=== PATIENT | female | born 1940 | race Caucasian/White ===

== ENCOUNTER → 2019-04-20 | Outpatient (CLI) | payer MEDICARE ==
[~2019-04-20] VITALS: Ht 155 cm; Wt 48.0 kg
[~2019-04-20] MED LIST: CATHETER FLUSH 10 ML SYR IV PRN
[2019-04-20 13:07] VITALS: BP 154/69
[2019-04-20 13:36] VITALS: BP 201/72
--- NOTE | 2019-04-20 23:34 | STRESS TEST ---
DATE OF SERVICE: 04/20/2019 EXERCISE MYOVIEW STRESS TEST REFERRING PROVIDER: Wendy Jackson NP Baseline heart rate is 76. Baseline blood pressure 154/69. Baseline EKG is sinus rhythm with no ischemic changes. In summary, the patient was injected with 10.83 mCi of technetium-99 Myoview and the resting images were obtained. Then, the patient started exercising with a baseline heart rate, blood pressure and EKG mentioned above. She was able to exercise for 3 minutes and 30 seconds on standard Raheem protocol. With peak exercise level, EKG was showing nondiagnostic changes. During recovery, heart rate and blood pressure returned to baseline. EKG returned to baseline. The resting and stress images were reviewed and compared in the short axis, horizontal long axis, and vertical long axis views. Review of the images showed good radiotracer uptake with no significant ischemia or infarction. SSS is 2, SDS 2, TID value 1.03. On the gated images, the left ventricle appeared to be in normal size with normal contractility. Calculated ejection fraction 75%. CONCLUSION: 1. Poor exercise tolerance, a total of 3 minutes 30 seconds on standard Raheem protocol, total of 5.2 METS achieving 97% of maximum expected heart rate. 2. Severe hypertensive response to exercise with peak blood pressure 206/86, returned to baseline during recovery. 3. Minimal nondiagnostic EKG changes with exercise, returned to baseline during recovery. 4. No ischemia or infarction on SPECT images. 5. Normal left ventricular size with normal contractility. Calculated ejection fraction 75%. Job ID: [id number] DocumentID: [id number] Dictated Date: 04/20/2019 15:48:27 [employer] Date: 04/20/2019 21:50:44 Dictated By: SUBHASH LUGO MD
== END ==
LOC: CARD 11:02
PROVIDERS: ATTEND Internal Medicine Cardiovascular Disease
DX: E78.2 Mixed hyperlipidemia (principal); I10 Essential (primary) hypertension; Z82.49 Family history of ischemic heart disease and other diseases of the circulatory system; Z83.3 Family history of diabetes mellitus
CPT/HCPCS: 78452; 93017; 93306